=== PATIENT | female | born 2000 | race Two or more races ===

== ENCOUNTER 2024-06-17 19:27 | Emergency (ER) | payer MEDICAID, OTHER ==
[~2024-06-17] VITALS: Ht 167.6 cm; Wt 66.0 kg
[2024-06-17 20:06] VITALS: O2SAT 100
[2024-06-17] MEDS: ACETAMINOPHEN 325MG TABLET PO ONE (22:28)
[2024-06-17] MEDS ORDERED: LIDO700A15 TP (23:44)
[2024-06-17 23:58] VITALS: BP 115/82; PULSE 75; RESP 18; TEMP 36.9; O2SAT 100
== END 2024-06-17 23:56 | disposition home or self-care (01) ==
LOC: ER 19:27
DX: R59.1 Generalized enlarged lymph nodes (principal)
CPT/HCPCS: 70360; 99283